=== PATIENT | female | born 1990 | race Caucasian/White ===

== ENCOUNTER → 2016-11-22 | Outpatient (CLI) | payer BC ==
[~2016-11-22] MED LIST: DOCU-94 PO; FERR1TAB13 PO; PRENTAB26 PO
[2016-11-22 12:17] LABS: GTGD 50 Grams
[2016-11-23 15:05] LABS: AFP CONCENTRATION 47.2 NG/ML; AFP MULTIPLE OF MEDIAN 1.24; AFPTS GESTATIONAL AGE 16.4 WEEKS; AFPTS INSULIN DEP DIABETIC? NO; AFPTS MATERNAL WT 129 LBS; ALPHA-FETOPROTEIN RACE CAUCASIAN=W; ESTRIOL MULTIPLE OF MEDIAN 0.89; HISTORY OF NTD NO; INHIBIN A 190 PG/ML; INHIBIN A MOM 1.05; REPEAT SAMPLE? NO; hCG MULTIPLE OF MEDIAN 0.32
== END | disposition home or self-care (01) ==
LOC: C.LAB1850 09:36
PROVIDERS: ATTEND Obstetrics & Gynecology
DX: Z34.02 Encounter for supervision of normal first pregnancy, second trimester (principal)

== ENCOUNTER → 2017-02-08 | Outpatient (CLI) | payer BC ==
[2017-02-08 12:18] LABS: HEMATOCRIT 30.9 % (37-47)
[2017-02-08 12:50] LABS: GTGD 50 Grams
[2017-02-08 14:04] LABS: URINE APPEARANCE CLEAR (CLEAR); URINE BILIRUBIN NEG (NEG); URINE COLOR YELLOW; URINE NITRITE NEG (NEG); URINE PH 7.5 (4.5-7.5); UROBILINOGEN NEG (NEG)
[2017-02-08 14:06] LABS: MANUAL MICROSCOPIC REQUIRED? NO; REVIEW REQ? NO
== END | disposition home or self-care (01) ==
LOC: C.LAB1850 11:08
PROVIDERS: ATTEND Obstetrics & Gynecology
DX: Z34.03 Encounter for supervision of normal first pregnancy, third trimester (principal)

== ENCOUNTER → 2017-04-10 | Outpatient (CLI) | payer BC | END | disposition home or self-care (01) | LOC: C.LABSPEC 14:00 | PROVIDERS: ATTEND Obstetrics & Gynecology | DX: Z34.03 Encounter for supervision of normal first pregnancy, third trimester (principal) ==

== ENCOUNTER → 2017-04-11 | Outpatient (CLI) | payer BC ==
[2017-04-11 11:49] LABS: PATIENT HEIGHT 154.9 cm
[2017-04-11 12:29] LABS: BASO % 0.2 %; BASO ABS # 0.01 K/uL (0-0.2); COMPLETE YES; EOS % 2.5 %; HEMATOCRIT 35.2 % (37-47); IG% 0.9 %; LYMPH % 16.8 %; LYMPH ABS # 1.08 K/uL (1.2-3.4); MEAN CELL VOLUME 91.4 fL (80-100); MEAN CORPUSCULAR HEMOGLOBIN 28.8 pg (25-34); MEAN CORPUSCULAR HGB CONC 31.5 g/dl (32-36); MEAN PLATELET VOLUME 11.2 fL (7.4-10.4); MONO % 8.4 %; NEUT % 71.2 %; PLATELET COUNT 159 K/uL (130-400); RED BLOOD COUNT 3.85 M/uL (4.2-5.4); WHITE BLOOD COUNT 6.41 K/uL (4.8-10.8)
[2017-04-11 12:55] LABS: URINE TOTAL PROTEIN 11.9 mg/dl (0-11.9)
[2017-04-11 12:58] LABS: URINE TOTAL PROTEIN CALC 249.9 mg/24 hr (0-149.1)
[2017-04-11 13:31] LABS: URIC ACID 4.4 mg/dl (2.6-7.2)
[2017-04-11 13:39] LABS: CREATININE 0.58 mg/dl (0.6-1.2)
== END | disposition home or self-care (01) ==
LOC: C.LAB1850 10:51
PROVIDERS: ATTEND Obstetrics & Gynecology
DX: O13.9 Gestational [pregnancy-induced] hypertension without significant proteinuria, unspecified trimester (principal)

== ENCOUNTER 2017-04-20 10:15 | Inpatient (IN) | payer BC ==
[~2017-04-20] VITALS: Ht 154.9 cm; Wt 75.0 kg
[2017-04-20] MEDS ORDERED: LACTATED RINGER'S 1000ML 1,000 ML IV SCH (10:25)
[2017-04-20] MEDS ORDERED: LACTATED RINGER'S 1000ML 1,000 ML IV PRN (10:25)
[2017-04-20] MEDS ORDERED: PATIENT'S ALLERGY INFO NEEDS ENTERED SCH (10:30)
[2017-04-20 10:35] VITALS: Ht 154.9 cm; Wt 75.0 kg
[2017-04-20] MEDS ORDERED: PRENTAB26 PO (10:35)
[2017-04-20] MEDS ORDERED: FERR1TAB13 PO (10:35)
[2017-04-20] MEDS ORDERED: DOCU-94 PO (10:35)
[2017-04-20] MEDS ORDERED: FENTANYL CITRATE INJ 50 MCG/1 ML 2 ML VIAL ONE (10:59)
[2017-04-20] MEDS ORDERED: FENTANYL 2MCG/ML ROPIV 1.25MG/ML 100ML BAG EPI ONE (10:59)
[2017-04-20] MEDS ORDERED: BUPIVACAINE 0.25% 30 ML VIAL ONE (10:59)
[2017-04-20] MEDS ORDERED: EpHEDrine SULFATE INJ 50 MG/ML AMP ONE (10:59)
[2017-04-20] MEDS ORDERED: PENICILLIN G POTASSIUM IV 6 MU in DEXTROSE 5% 250ML 250 ML IV ONE (11:00)
[2017-04-20 11:21] LABS: HEMATOCRIT 36.5 % (37-47); MEAN CELL VOLUME 90.3 fL (80-100); MEAN CORPUSCULAR HEMOGLOBIN 28.7 pg (25-34); MEAN CORPUSCULAR HGB CONC 31.8 g/dl (32-36); MEAN PLATELET VOLUME 10.9 fL (7.4-10.4); PLATELET COUNT 179 K/uL (130-400); RED BLOOD COUNT 4.04 M/uL (4.2-5.4); WHITE BLOOD COUNT 7.39 K/uL (4.8-10.8)
[2017-04-20] MEDS ORDERED: LACTATED RINGER'S 1000ML 500 ML IV PRN (12:06)
[2017-04-20] MEDS ORDERED: NALOXONE HCL INJ 1 MG in SODIUM CHLORIDE 0.9% 1000ML 1,000 ML IV PRN (12:06)
[2017-04-20] MEDS ORDERED: EpHEDrine SULFATE INJ 50 MG/ML AMP IV PRN (12:15)
[2017-04-20] MEDS ORDERED: FENTANYL 2MCG/ML ROPIV 1.25MG/ML 100ML BAG EPI PRN (12:15)
[2017-04-20] MEDS ORDERED: DiphenhydrAMINE HCL 50 MG/ML VIAL IV PRN (12:15)
[2017-04-20] MEDS ORDERED: NALBUPHINE HCL INJ 10 MG/ML AMP IV PRN (12:15)
[2017-04-20] MEDS ORDERED: ONDANSETRON INJ 2 MG/ML 2 ML VIAL IV PRN (12:15)
[2017-04-20] MEDS ORDERED: NALOXONE HCL INJ 0.4 MG/1 ML VIAL/CARP IV PRN (12:15)
--- NOTE | 2017-04-20 12:36 | Medical Student: [facility] ---
Med Student History & Physical Date of Service Apr 20, 2017. Chief Complaint R/O Labor History of Present Illness Source: patient Iza Obregon is a 26-year-old at 37 weeks-5/7 days with an EDC of who presents for labor. Starting at 9AM she began having contractions that were about 3 minutes apart. She is unsure if she has leaked any fluid, but she has not had any bleeding. She is still feeling movement. Upon arrival she was uncomfortable and requested epidural. Epidural is now and place and patient is having some relief. This has been uncomplicated thus far. She did have an elevated blood pressure of 148/84 on 04/10/17. PIH labs and 24 hour urine were not suggestive of preeclampsia. Blood pressure on 04/18/17 was 132/ 80. She denies any visual changes, RUQ pain, nausea, vomiting, or headache today. She does feel short of breath but thinks this may be due to her pain. This has been followed by [facility]. Iza is having a boy and plans to name him "Caesar." Quad screening was not suggestive of any genetic disease. 1 hr glucose challenge on 11/22/16 was 124. Blood type is O+, and Hbg is 11.6 today. labs are negative for RPR, gonorrhea, chlamydia , HIV, and Hep B. GBS positive. Anatomy ultrasound was within normal limits. Urine culture grew lactobacillus. Rubella immune. OB History Current is first and only . 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 Denies history of abnormal pap smears, STIs, or any other gynecologic problem Past Medical History Patient reports anemia in high school and during this . 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[facility]) Allergies Coded Allergies: Clarithromycin (Verified Allergy, Severe, RASH, 04/20/17) Home Medications Docusate Sodium (Colace), 1 CAP PO DAILY Ferrous Sulfate (Kp Ferrous Sulfate), 1 TAB PO DAILY Multivit/Min/Iron/Fol Ac/Pren ( Vitamin), 1 TAB PO DAILY Review of Systems Constitutional: No fever, No chills Eyes: No worsening of vision Respiratory: + shortness of breath Cardiovascular: No chest pain, No palpitations Abdomen: No nausea, No vomiting No dizziness or headache Physical Exam General Appearance: no apparent distress (now comfortable with epidural, very uncomfortable prior to receiving it) Eyes: PERRL, sclerae normal Neck: no adenopathy, thyroid normal Respiratory/Chest: lungs clear Cardiovascular: regular rate, rhythm, no gallop, + systolic murmur (likely of normal ) Abdomen / GI: normal bowel sounds Fundal Height: 1 fingerbreadth below xiphoid process Extremities: no calf tenderness, no pedal edema Cervical Exam: 5 cm dilated, 100% effaced, 0 station Monitoring External Monitor: Baseline - 145 Variability - Moderate Accelerations - Present Decelerations - Early Tocodynamometer: Daly every 1-2 minutes Laboratory Results 04/20/17 11:11 Test 04/20/17 11:11 Red Blood Count 4.04 M/uL (4.2-5.4) Mean Corpuscular Volume 90.3 fL (80-100) Mean Corpuscular Hemoglobin 28.7 pg (25-34) Mean Corpuscular Hemoglobin Concent 31.8 g/dl (32-36) RDW Standard Deviation 50.7 fL (36.4-46.3) RDW Coefficient of Variation 15.2 % (11.5-14.5) Mean Platelet Volume 10.9 fL (7.4-10.4) Assessment and Plan Iza Obregon is a 26-year-old at 37 weeks-5/7 days with an EDC of who presents to labor and delivery for labor. Blood pressure WNL today, but continue to monitor for symptoms of eclampsia and HELLP syndrome. Patient comfortable with epidural and visiting with family. Allow patient to labor down and anticipate normal spontaneous vaginal delivery.
[2017-04-20] MEDS: PENICILLIN G POTASSIUM IV 3 MU in DEXTROSE 5% 100ML 100 ML IV PRN ×2 (14:16→18:33)
[2017-04-20] MEDS ORDERED: OXYTOCIN 30 UNITS/500ML NSS IV ONE (16:21)
[2017-04-20] MEDS ORDERED: OXYCODONE/ACETAMINOPHEN 5-325 TAB PO PRN (20:45)
[2017-04-20] MEDS ORDERED: SUPERCREAM 0.870 % 15GM JAR EXT PRN (20:45)
[2017-04-20] MEDS ORDERED: BENZOCAINE 20% AER SPR 82.5 GM CAN EXT PRN (20:45)
[2017-04-20] MEDS ORDERED: HYDROCORTISONE ACETATE 25 MG SUPP PR PRN (20:45)
[2017-04-20] MEDS ORDERED: OXYTOCIN 30 UNITS/500ML NSS IV PRN (20:45)
[2017-04-20] MEDS ORDERED: LANOLIN OINT EXT PRN ×2 (20:45)
--- NOTE | 2017-04-20 21:38 | Anesthesia Procedure Note ---
Anesthesia Epidural Removal Nt Date & Time Apr 20, 2017 at 21:38 Vital Signs Pain Intensity: 2 Notes Mental Status: alert / awake / arousable, participated in evaluation Nausea / Vomiting: adequately controlled Pain: adequately controlled Airway Patency, RR, SpO2: stable & adequate BP & HR: stable & adequate Hydration State: stable & adequate Neuraxial Anesthesia: was administered Anesthetic Complications: no major complications apparent, pt satisfied with anesthetic care Epidural: removed without complications, with tip intact
[2017-04-20] MEDS: IBUPROFEN 600 MG TAB PO PRN (22:25)
[2017-04-20 23:32] VITALS: BP 124/80; PULSE 93; TEMP 36.8
--- NOTE | 2017-04-21 01:19 | DELIVERY SUMMARY ---
DATE OF OPERATION: 04/20/2017 PRE-DELIVERY DIAGNOSES: 1. 26-year-old G1, P0 at 37 weeks 5 days. 2. Spontaneous labor. 3. Group B strep positive. Post-delivery: same EBL: 300ml Findings: viable male , apgars 6, 8, 9. Weight pending. Description of delivery: The patient progressed to complete. She then began to push and spontaneously vaginally delivered a viable male from the occiput posterior position. The head delivered, nuchal x 1 easily reduced, anterior then posterior shoulder then body. Baby was placed on mother's abdomen. Delayed cord clamp by 1 minute. Placenta delivered spontaneously intact with 3 vessel cord. Pit given. Uterus became firm. Uterus/vagina swept of clots and debris. Cervix, vagina, perineum inspected. 2nd degree laceration, no laceration of anal spincter muscle, however muscle capsule partially - this was reapproximated with [id number] stitch of 3-0 chromic. 2nd degree perineal laceration repaired with 3-0 vicryl. Excellent hemostasis. Patient and baby tolerated well and are recovering in room. Sponge/instrument/ needle count correct x 2. MTDD
[2017-04-21 03:30] VITALS: BP 105/68; PULSE 84; TEMP 36.9
[2017-04-21 07:12] LABS: HEMATOCRIT 33.4 % (37-47)
--- NOTE | 2017-04-21 07:13 | Progress Note ---
Subjective Apr 21, 2017. Subjective conversation w/ patient Ambulation: ambulating normally Passing Gas: Yes Diet Tolerance: Regular Diet Lochia: Moderate Feeding Type: Breast Feeding Pain: controlled Review of Systems Constitutional: No problem reported Respiratory: No problem reported Cardiac: No problem reported Breast: No problem reported Abdomen: No problem reported Female : No problem reported Objective Vital Signs Date Time Temp Pulse Resp B/P (MAP) Pulse Ox O2 Delivery O2 Flow Rate FiO2 04/21/17 03:30 36.9 84 18 105/68 (80) Room Air 04/20/17 23:35 Room Air 04/20/17 23:32 36.8 93 18 124/80 (95) Room Air Physical Exam General Appearance: WELL-APPEARING, NO APPARENT DISTRESS Respiratory/Chest: no respiratory distress Cardiovascular: regular rate, rhythm Abdomen: non tender, soft Fundus: Firm Extremities: normal inspection Laboratory Results Last 24 Hours Test 04/20/17 11:11 04/21/17 06:43 White Blood Count 7.39 K/uL Red Blood Count 4.04 M/uL Hemoglobin 11.6 g/dL 10.5 g/dL Hematocrit 36.5 % 33.4 % Mean Corpuscular Volume 90.3 fL Mean Corpuscular Hemoglobin 28.7 pg Mean Corpuscular Hemoglobin Concent 31.8 g/dl RDW Standard Deviation 50.7 fL RDW Coefficient of Variation 15.2 % Platelet Count 179 K/uL Mean Platelet Volume 10.9 fL Assessment and Plan Post- Day#: 1 Continue Routine Care: PPD#1 doing well. Continue routine care.
[2017-04-21] MEDS: IBUPROFEN 600 MG TAB PO PRN ×4 (07:26→20:14)
[2017-04-21 07:30] VITALS: BP 129/79; PULSE 80; TEMP 36.8; O2SAT 98
[2017-04-21] MEDS: DOCUSATE SODIUM 100 MG CAP PO SCH ×2 (08:03→20:14)
[2017-04-21 11:45] VITALS: BP 116/75; PULSE 93; TEMP 36.7; O2SAT 98
[2017-04-21 15:54] VITALS: BP 127/87; PULSE 96; TEMP 36.9
[2017-04-21 19:30] VITALS: BP 118/78; PULSE 96; TEMP 36.6
[2017-04-21] MEDS ORDERED: BISACODYL 5 MG TABEC PO SCH (20:00)
[2017-04-22] MEDS: IBUPROFEN 600 MG TAB PO PRN ×2 (00:14→08:45)
[2017-04-22 00:30] VITALS: BP 108/70; PULSE 79; TEMP 36.5
--- NOTE | 2017-04-22 07:19 | Progress Note ---
Subjective Apr 22, 2017. Subjective conversation w/ patient, physical exam Ambulation: ambulating normally Voiding: no voiding problems Diet Tolerance: Regular Diet Lochia: Small Feeding Type: Breast Feeding Pain: no pain issues Objective Vital Signs Date Time Temp Pulse Resp B/P (MAP) Pulse Ox O2 Delivery O2 Flow Rate FiO2 04/22/17 00:30 36.5 79 16 108/70 (83) Room Air 04/22/17 00:30 Room Air 04/21/17 19:30 36.6 96 20 118/78 (91) Room Air 04/21/17 15:54 36.9 96 20 127/87 (100) 04/21/17 15:30 Room Air 04/21/17 11:45 36.7 93 18 116/75 (89) 98 Room Air 04/21/17 07:30 36.8 80 20 129/79 (96) 98 Room Air 04/21/17 07:30 98 Room Air Physical Exam General Appearance: WELL-APPEARING, WD/WN, NO APPARENT DISTRESS Respiratory/Chest: lungs clear Cardiovascular: regular rate, rhythm Abdomen: non tender, soft Fundus: Firm, Relation to Umbilicus (2 down) Extremities: non-tender Assessment and Plan Post- Day#: 2 Continue Routine Care: stable, routine care. f/u 6wks pp, instructions reviewed.
--- NOTE | 2017-04-22 07:21 | Discharge Instructions ---
Discharge Instructions Date of Service Apr 22, 2017. Admission Reason for Admission: R/O Labor Discharge Discharge Diagnosis / Problem: after delivery Discharge Goals Goal(s): Routine recovery after delivery Medications Continue Dispensed Medications: other Activity Recommendations Activity Limitations: as noted below . Instructions / Follow-Up Instructions / Follow-Up ACTIVITY RECOMMENDATIONS: * Gradual return to full activity over the next 2-3 weeks. * No lifting - nothing heavier than baby over the next 2-3 weeks. * Do not engage in vigorous exercise, sexual activity or sports until cleared by your physician. * Do not drive or operate any motorized equipment until cleared by your physician. * You may shower/bathe daily. MEDICATIONS: For discomfort or pain, you may use Acetaminophen (Tylenol), Ibuprofen (Advil), or Naproxen (Aleve) following the package directions. For constipation you may use Colace following the package directions. BREAST CARE: If you are not breast feeding: * Wear a supportive bra 24 hours a day for one to two weeks. * Avoid stimulating your breasts and nipples as much as possible during the first few weeks after delivery. * When taking a shower, have the warm water hit your back, not breasts. * When your breasts feel full, apply ice packs. Usually three to four times a day helps ease the discomfort. * Take a mild pain medication (Tylenol / Motrin) when you are uncomfortable. If breast feeding: * Use breast milk to lubricate nipples. Lansinoh cream may be used for sore nipples. You do not need to remove cream prior to breast feeding. If using a different brand of cream, check the label for directions regarding removal of cream prior to nursing. * Wear a supportive bra. * If having problems with breasts or breast feeding, call a vmware consultant or your health care provider. EPISIOTOMY CARE: After delivery, if you have an episiotomy (stitches), the following steps will ease discomfort and aid healing. * For the first 24 hours after delivery, place ice packs next to your episiotomy to help reduce swelling. * After the first 24 hour-period, sitz baths, either portable or in the tub, are suggested. A shower with a shower arm sprayed over the episiotomy may be comforting. * Christina care should be done after each voiding and bowel movement. Squirt warm water from a plastic bottle over the perineum (region of the body between the anus and urinary opening) and pat dry. * Use Dermoplast to ease discomfort. Shake container. Goodwin directly over the episiotomy. Place a Tucks on a clean sanitary pad next to your episiotomy. SPECIAL CARE INSTRUCTIONS: When you are discharged from the hospital, it is important for you to follow the instructions listed below: * During the first week at home, you should be able to care for yourself and your baby. In addition, the usual light household activities are encouraged. * Limit your activities to the way you feel. Do not try to clean the house or move furniture. Be sensible. * If you actively engage in sports and have done so up until the time of your delivery, you may resume these activities as soon as you feel able. This may take up to one month or even longer. Use good judgment. * Continue to take your vitamins for at least six weeks after the of your baby. * Your diet need not be limited unless you were on a special diet before your delivery. Breast-feeding mothers need around 2500 calories per day and at least 64-80 ounces of fluid per day (8 to 10 glasses). * You should eat foods from the four major food groups. Crash diets or fad diets are to be avoided. Eating lean meats, fresh fruits and vegetables, low-fat dairy products, high fiber foods and a regular exercise program, will help you get back to your pre- weight without putting your health at risk. * Constipation is sometimes a problem after delivery. Take a mild laxative as needed. If breast feeding, Milk of Magnesia is acceptable to use. You may use a suppository or Fleets enema if no episiotomy. * A daily shower or tub bath is suggested. Be sure to thoroughly and gently dry the perineum. * A bloody vaginal discharge will usually continue until around four weeks post . A small amount of bleeding may continue for as long as six weeks. Vaginal discharge changes from the bright red bleeding after delivery to pink then brownish and finally yellowish-pink before becoming white and disappearing. * Bleeding may increase with activity. Your first period may come in 4-8 weeks. If you are breast feeding, your period may be delayed even longer. * Streetman (sex) can begin whenever both you and your partner feel comfortable and do not have any form of genital infection. It is recommended that you wait at least six weeks for internal and external healing to occur. If you have questions, please talk to your health care practitioner. A condom should be used to prevent infection and . * Foreplay, gentle intercourse and lubrication is very important the first several times to prevent pain. A water-based lubricant such as K-Y jelly or Astroglide may be used. * If you have RH negative blood and your baby is RH positive, you will receive RHOGAM by injection prior to discharge. The nurse will give you a card to keep with you that has the date and place that you received RHOGAM after delivery. * During your care, you had a Rubella screen done to check for the presence of rubella antibodies in your blood. If your test was negative, you will receive a Rubella vaccine prior to discharge. This vaccine may cause a fever, soreness at the injection site and flu-like symptoms. If these symptoms persist, notify your health care practitioner. is not advised for one month after a Rubella vaccine. * Verbalizes understanding of car seat law as reviewed with patient nursing. * Car Seat hand-out given and reviewed with patient by nursing. * Shaken baby information reviewed with patient by nursing. Call you doctor if: * Heavy bleeding (saturating several pads an hour) or passing clots the size of your fist. * A fever >101 degrees F (38.3 degrees C) on two occasions four hours apart and /or chills. * Unusual pain in the pelvic or vaginal areas. * "Baby Blues" lasting longer than two weeks. If you have any questions or concerns, call your health care practitioner at . FOLLOW UP VISIT: * Please call the office at to schedule a 6 week examination. It is important you keep this appointment. It is important for you to make arrangements for either yearly or twice yearly check-ups thereafter. Current Hospital Diet Patient's current hospital diet: Regular OB Diet Discharge Diet Recommended Diet: Regular Diet Pending Studies Studies pending at discharge: no Medical Emergencies . Who to Call and When: Medical Emergencies: If at any time you feel your situation is an emergency, please call 911 immediately. . Non-Emergent Contact Non-Emergency issues call your: [employer] . . "Provider Documentation" section prepared by Brittney Ledesma. . VTE Core Measure Inpt VTE Proph given/why not?: Treatment not indicated
[2017-04-22 07:35] VITALS: BP 106/67; PULSE 80; TEMP 36.7
[2017-04-22] MEDS: DOCUSATE SODIUM 100 MG CAP PO SCH (08:46)
[2017-04-22 16:00] VITALS: BP 100/67; PULSE 92; TEMP 36.8
[2017-04-22 18:17] VITALS: BP_DIAS 67; PULSE 92; TEMP 36.8
== END 2017-04-22 18:20 | disposition home health service (06) | DRG 775 ==
LOC: C.OPB 10:15 → C.LD 10:15 → C.OPB 10:27 → C.OBG 23:12
PROVIDERS: ADMIT Obstetrics & Gynecology; ATTEND Obstetrics & Gynecology
PROC: 10E0XZZ Delivery of Products of Conception, External Approach (ICD-10-PCS; principal; 2017-04-20)
PROC: 0KQM0ZZ Repair Perineum Muscle, Open Approach (ICD-10-PCS; principal; 2017-04-20)
DX: O70.1 Second degree perineal laceration during delivery (principal); O69.81X0 Labor and delivery complicated by cord around neck, without compression, not applicable or unspecified; Z22.330 Carrier of Group B streptococcus; Z3A.37 37 weeks gestation of pregnancy; Z37.0 Single live birth

== ENCOUNTER → 2017-05-29 | Outpatient (CLI) | payer BC | END | disposition home or self-care (01) | LOC: C.PAPS 17:38 | PROVIDERS: ATTEND Obstetrics & Gynecology | DX: Z39.2 Encounter for routine postpartum follow-up (principal) ==

== ENCOUNTER 2019-09-12 11:37 | Inpatient (IN) ==
[2019-09-12] MEDS ORDERED: OXYTOCIN 30 UNITS/500 ML BAG IV PRN ×3 (17:52→23:12)
[2019-09-12 18:20] LABS: Hematocrit (blood only) 35.5 % (37-47); Hemoglobin 11.7 g/dL (12.0-16.0); Mean Corpuscular Hemoglobin 29.5 pg (25-34); Mean Corpuscular Volume 89.6 fL (80-100); Mean Platelet Volume 10.6 fL (7.4-10.4); Platelet Count 146 K/uL (130-400); RDW Coefficient of Variation 15.2 % (11.5-14.5); RDW Standard Deviation 49.4 fL (36.4-46.3); Red Blood Count 3.96 M/uL (4.2-5.4); White Blood Count 7.75 K/uL (4.8-10.8)
[2019-09-12] MEDS: LACTATED RINGER'S 1,000 ML IV PRN ×2 (18:53→21:51)
--- NOTE | 2019-09-12 19:01 | History & Physical Report ---
Date of Service September 12, 2019 Assessment & Plan (1) Supervision of normal intrauterine in multigravida: 29yo at 40.0 weeks GA. Presents for elective IOL. 1. Fetus: Cat 1 2. Labor: Will AROM and then start oxytocin. 3. Vitals: WNL 4. GBS negative History of Present Illness Primary Care Provider: RODRIGO PCP 29yo at 40.0 weeks GA. Present for elective IOL. has been uncomplicated to date. GBS negative. Allergies Allergy/AdvReac Type Severity Reaction Status Date / Time clarithromycin Allergy Severe RASH Verified 09/12/19 18:32 Home Medications Home Medications Medication Instructions Recorded Confirmed Type prenat.vits,lindsey,[id number]-[id number]-[id number] 1 tab PO DAILY 06/07/19 09/12/19 History docusate sodium [Colace] 100 mg PO BID 09/12/19 09/12/19 History ferrous sulfate [iron] 325 mg PO DAILY 09/12/19 09/12/19 History Patient History Family History (Updated 06/07/19 @ 09:21 by Marilynn García) Other Dyslipidemia Hypertension Social History (Updated 06/07/19 @ 09:21 by Marilynn García) Preferred Language: Kinyarwanda Communication Ability: Effective Psychologist Experimental Required: No Beliefs That Will Affect Care: None marital status: Current Living Situation: Family Other Information That Helps Us Care for You: No Feels Safe at Home: Yes Safety Concerns: Feels Safe At This Time Smoking Status: Never smoker Hx Alcohol Use: No Hx Substance Use: No Physical Exam Constitutional: WD/WN, vitals as above Psychiatric: A+Ox3, euthymic affect Genitourinary: no vaginal lesions, no adnexal mass Manual OB Exam: + cervical dilation 2 cm, + cervical effacement 70% and + station -2 OB Exam Monitor Tracing: + external FHT monitor used, + external uterine monitor used, + category I and + normal FHT variability; no early decelerations present, no late decelerations present and no variable decelerations Results & Data Vital Signs (Past 12 Hours) Vital Signs Temp Pulse Resp BP 09/12/19 18:07 37.4 C 83 16 114/78
[2019-09-12] MEDS ORDERED: fentaNYL 2MCG/ML ROPIV 1.25MG/ML 100 ML BAG EPI ONE (20:21)
[2019-09-12] MEDS ORDERED: BUPIVACAINE 0.25% 30 ML VIAL ONE (20:21)
[2019-09-12] MEDS ORDERED: ePHEDrine sulfate 50 MG/ML AMP ONE (20:21)
[2019-09-12] MEDS ORDERED: fentaNYL citrate 100 MCG/2 ML VIAL ONE (20:21)
--- NOTE | 2019-09-12 21:02 | Anesthesiology Consultation ---
Date of Service September 12, 2019 Assessment & Plan Chart Review Chart Review: Acceptable Risk for Labor Epidural Consults Requested none History Height/Weight Height: 5 ft 1 in Weight: 71.668 kg Allergies Allergy/AdvReac Type Severity Reaction Status Date / Time clarithromycin Allergy Severe RASH Verified 09/12/19 18:32 Medications Home Medications Medication Instructions Recorded Confirmed Last Taken prenat.vits,lindsey,wui-ifpw-oiaka 1 tab PO DAILY 06/07/19 09/12/19 09/12/19 08:00 docusate sodium [Colace] 100 mg PO BID 09/12/19 09/12/19 09/12/19 08:00 ferrous sulfate [iron] 325 mg PO DAILY 09/12/19 09/12/19 09/12/19 08:00 Active Medications Generic Name Dose Route Start Last Admin Trade Name Freq PRN Reason Stop Dose Admin Lactated Ringer's 1,000 mls @ 125 mls/hr 09/12/19 17:52 09/12/19 20:20 Lr IV 09/14/19 17:51 999 mls/hr .Q8H PRN Infusion L&D Protocol Protocol Oxytocin 30 units in 500 mls @ 2 mls/hr 09/12/19 17:52 09/12/19 18:54 Pitocin IV 09/14/19 17:51 0.12 units/hr .Q24H PRN 2 mls/hr Labor Induction/Augmentation Administration Protocol 0.12 UNITS/HR Past Medical History Medical History History of varicella Past Family History Family History Other Dyslipidemia Hypertension Past Surgical History Surgical History History of wisdom tooth extraction Social History Smoking Status: Never smoker Hx Alcohol Use: No Hx Substance Use: No substance use type: does not use Physical Exam Vital Signs Last Vital Signs Temp 37.0 C 09/12/19 20:50 Pulse 79 09/12/19 21:00 Resp 16 09/12/19 20:50 BP 109/64 09/12/19 21:00 Pulse Ox 100 09/12/19 20:59 Testing Laboratory Results 09/12/19 18:10
[2019-09-12] MEDS ORDERED: ePHEDrine sulfate 50 MG/ML AMP IV PRN (21:04)
[2019-09-12] MEDS ORDERED: NALOXONE HCL 0.4 MG/1 ML VIAL/CARP IV PRN (21:04)
[2019-09-12] MEDS ORDERED: DiphenhydrAMINE HCL 50 MG/ML VIAL IV PRN (21:04)
[2019-09-12] MEDS ORDERED: fentaNYL 2MCG/ML ROPIV 1.25MG/ML 100 ML BAG EPI PRN (21:04)
[2019-09-12] MEDS ORDERED: NALBUPHINE HCL INJ 10 MG/ML AMP IV PRN (21:04)
[2019-09-12] MEDS ORDERED: NALOXONE HCL 1 MG in SODIUM CHLORIDE 0.9% 1000ML 1,000 ML IV PRN (21:04)
[2019-09-12] MEDS ORDERED: DIPHTHERIA/TETANUS/PERTUSSIS 0.5 ML SYR/VIAL IM ONE (23:12)
[2019-09-12] MEDS ORDERED: BENZOCAINE 20% AER SPR 82.5 GM CAN EXT PRN (23:12)
[2019-09-12] MEDS ORDERED: SUPERCREAM 0.870% 15 GM JAR EXT PRN (23:12)
[2019-09-12] MEDS ORDERED: BISACODYL 10 MG SUPP PR PRN (23:12)
[2019-09-12] MEDS ORDERED: ACETAMINOPHEN 325 MG TAB PO PRN (23:12)
[2019-09-12] MEDS ORDERED: HYDROCORTISONE ACETATE 25 MG SUPP PR PRN (23:12)
--- NOTE | 2019-09-13 02:53 | Anesthesia Procedure Note ---
Date of Service September 13, 2019 Anesthesia Post Epidural Note Vital Signs Vital Signs: Temp Pulse Resp BP Pulse Ox 37.0 C 85 16 108/62 100 09/12/19 23:20 09/13/19 01:05 09/13/19 00:35 09/13/19 01:05 09/12/19 22:44 Pain Intensity Bilateral Abdomen: Pain Intensity: 10 Notes Mental Status: alert / awake / arousable Nausea / Vomiting: adequately controlled Pain: adequately controlled Airway Patency, RR, SpO2: stable & adequate BP & HR: stable & adequate Hydration State: stable & adequate Neuraxial Anesthesia: was administered and sensory block is resolving Anesthetic Complications: no major complications apparent and Pt Satisfied with anesthetic care Epidural: Removed without complications and With tip intact
--- NOTE | 2019-09-13 03:37 | Delivery Summary ---
DATE OF OPERATION: 09/12/2019 PROCEDURE: Normal spontaneous vaginal delivery, second degree perineal laceration repair. SURGEON: Alexis Laguna MD PREOPERATIVE DIAGNOSES: 1. Single intrauterine at 40 weeks' gestational age. 2. Elective induction of labor. POSTOPERATIVE DIAGNOSES: 1. Single intrauterine at 40 weeks' gestational age. 2. Elective induction of labor. 3. Status post delivery. ESTIMATED BLOOD LOSS: 200 mL. DRAINS: None. FLUIDS: Continuous lactated ringer. URINE OUTPUT: Not measured. COMPLICATIONS: None. FINDINGS: Viable with weight pending and Apgars of 8 and 9 at 1 and 5 minutes respectively. INDICATIONS: Iza is a 29-year-old G2, P1-0-0-1, admitted at 40 weeks 0 days gestational age for elective induction of labor. At initial evaluation, the patient was 3 cm dilated, 80% effaced, -2 station. She underwent artificial rupture of membranes, started on oxytocin per regular protocol. She progressed in labor to complete-complete +2 station within about 4 hours and pushed for about 4-5 contractions to achieve delivery. DESCRIPTION OF PROCEDURE: The patient progressed to 10 cm dilated, 100% effaced, +2 station, pushed over intact perineum with epidural anesthesia and delivered a viable male with weight and Apgars as noted above. Head of the delivered in SALLY position, restituted to right transverse. A single loose nuchal was noted which was easily reduced. Body and shoulders quickly followed. was noted to be vigorous almost immediately upon delivery and a 1-minute delayed cord clamping was initiated. The cord was then double clamped and cut and cord blood was obtained. Attention was then turned to deliver the placenta, which was delivered intact, 3-vessel cord with gentle cord traction. On inspection of the perineum, vagina, and cervix, there was noted to be second degree perineal laceration which was repaired with 3-0 Vicryl in a crown stitch. Needle, sponge and instrument counts were correct at the completion of the case with mother and stable in the immediate post-delivery. I attest to the content of the Intraoperative Record and any orders documented therein. Any exception s are noted below.
[2019-09-13] MEDS: IBUPROFEN 600 MG TAB PO PRN ×4 (03:58→19:47)
[2019-09-13 06:41] LABS: Hematocrit (blood only) 32.9 % (37-47); Hemoglobin 10.5 g/dL (12.0-16.0)
--- NOTE | 2019-09-13 06:46 | Obstetrical Progress Note ---
Date of Service <Joseph England DO - Last Filed: 09/13/19 06:46> September 13, 2019 Assessment & Plan <DO Andrea Espinoza Last Filed: 09/13/19 06:46> (1) : -PPD#1 -Vitals reviewed, WNL (Tmax 37.0) - GBS -, Blood Type O+ - Clinically stable. - Feels well today. Eating well, voiding well, ambulating well. - Pain well controlled. - Routine post- care - After discharge will have [address] Laguna Day #:: 1 Subjective <DO Andrea Espinoza Last Filed: 09/13/19 06:46> Ambulation: ambulating normally Voiding: no voiding problems Passing Gas:: Yes Diet Tolerance:: regular diet Lochia:: Moderate Feeding Type:: breast feeding Current Pain Level(1-10): 3 (improves with analgesics) Patient is a 29 PPD#1. Patient states that she is feeling well today and that her pain is well controlled. She has no other complaints at this time. Constitutional: no fever and no chills Respiratory: no cough, no dyspnea and no wheezing Cardiovascular: no chest pain, no dyspnea, no palpitations, no edema and no calf pain Breast: no breast pain Gastrointestinal: no abdominal pain, no nausea and no vomiting Genitourinary (female): no dysuria and no difficulty urinating Neurologic: no headache(s) Physical Exam <DO Andrea Espinoza Last Filed: 09/13/19 06:46> Constitutional WD/WN, vitals as above Respiratory normal respiratory effort, lungs clear to auscultation Cardiovascular Rate/Rhythm: regular rate and regular rhythm Heart Sounds: normal S1 and normal S2; no click, no gallop, no murmur and no cardiac rub Extremities: + edema (+1); no calf tenderness Gastrointestinal (Abdomen) Inspection/Auscultation: abdomen normal to inspection and normal bowel sounds Percussion/Palpation: abdomen soft; abdomen nontender Genitourinary OB Exam Abdomen: + fundal height Fundus: + firm and + relation to umbilicus (1cm below); not tender and not boggy Results & Data <DO Andrea Espinoza Last Filed: 09/13/19 06:46> Vital Signs (Past 12 Hours) Vital Signs Temp Pulse Pulse Resp BP BP Pulse Ox 09/13/19 02:00 36.8 C 76 18 114/72 09/13/19 01:05 85 108/62 09/13/19 00:35 82 16 109/63 09/13/19 00:05 102 H 18 109/67 09/12/19 23:50 76 111/61 09/12/19 23:36 83 115/74 09/12/19 23:20 37.0 C 81 18 106/56 L 09/12/19 23:05 92 H 117/59 L 09/12/19 22:50 88 116/60 09/12/19 22:44 86 100 09/12/19 22:39 120 H 100 09/12/19 22:34 120 H 100 09/12/19 22:33 122 H 92 09/12/19 22:29 108 H 100 09/12/19 22:24 109 H 100 09/12/19 22:22 82 125/78 09/12/19 22:19 91 H 100 09/12/19 22:14 85 100 09/12/19 22:09 86 100 09/12/19 22:05 90 125/67 09/12/19 22:04 95 H 100 09/12/19 21:59 101 H 100 09/12/19 21:54 90 100 09/12/19 21:51 94 H 122/72 09/12/19 21:49 100 H 100 09/12/19 21:44 93 H 99 09/12/19 21:39 87 99 09/12/19 21:37 78 113/61 09/12/19 21:34 87 100 09/12/19 21:29 84 99 09/12/19 21:24 80 99 09/12/19 21:19 86 99 09/12/19 21:17 69 107/59 L 09/12/19 21:16 76 103/55 L 09/12/19 21:14 89 100 09/12/19 21:11 88 111/68 09/12/19 21:09 89 99 09/12/19 21:08 90 111/64 09/12/19 21:04 91 H 99 09/12/19 21:00 79 109/64 09/12/19 20:59 83 100 09/12/19 20:58 75 106/64 09/12/19 20:56 74 105/56 L 09/12/19 20:54 84 100 09/12/19 20:50 37.0 C 90 16 121/66 09/12/19 20:49 87 99 09/12/19 20:48 90 125/60 09/12/19 20:44 87 100 09/12/19 20:39 102 H 100 09/12/19 20:34 99 H 99 09/12/19 20:05 81 113/71 <Alexis Laguna MD - Last Filed: 09/13/19 08:03> Co-Signing Physician Notes Patient seen and evaluated and agree with the above findings and plan. Routine care. Resident Activity Tracking <Joseph England DO - Last Filed: 09/13/19 06:46> Resident Involvement: Resident Care Provided Care Provided: OB Delivery
[2019-09-13] MEDS: PRENATAL VITAMIN 1 TAB PO SCH (08:11)
[2019-09-13] MEDS: DOCUSATE SODIUM 100 MG CAP PO SCH ×2 (08:11→19:47)
[2019-09-13] MEDS ORDERED: BISACODYL 5 MG TABEC PO SCH (20:00)
--- NOTE | 2019-09-14 06:42 | Obstetrical Progress Note ---
Date of Service <Joseph England DO - Last Filed: 09/14/19 06:42> September 14, 2019 Assessment & Plan <DO Andrea Espinoza Last Filed: 09/14/19 06:42> (1) : -PPD#2 -Vitals reviewed, WNL (Tmax 36.8) - GBS -, Blood Type O+ - Clinically stable. - Feels well today. Eating well, voiding well, ambulating well. - Pain well controlled. - Routine post- care - After discharge will have [address] Laguna Day #:: 2 Subjective <Joseph England DO - Last Filed: 09/14/19 06:42> Ambulation: ambulating normally Voiding: no voiding problems Passing Gas:: Yes Diet Tolerance:: regular diet Lochia:: Small Feeding Type:: breast feeding (plus bottle supplementation) Current Pain Level(1-10): 1 (improves with analgesics) Patient is a 29 PPD#2. Patient states that she is feeling well today and that her pain is well controlled. She has no other complaints at this time. Constitutional: no fever and no chills Respiratory: no cough, no dyspnea and no wheezing Cardiovascular: no chest pain, no dyspnea, no palpitations, no edema and no calf pain Breast: no breast pain Gastrointestinal: no abdominal pain, no nausea and no vomiting Genitourinary (female): no dysuria and no difficulty urinating Neurologic: no headache(s) Physical Exam <DO Andrea Espinoza Last Filed: 09/14/19 06:42> Constitutional WD/WN, vitals as above Respiratory normal respiratory effort, lungs clear to auscultation Cardiovascular Rate/Rhythm: regular rate and regular rhythm Heart Sounds: normal S1 and normal S2; no click, no gallop, no murmur and no cardiac rub Extremities: no calf tenderness and no edema Gastrointestinal (Abdomen) Inspection/Auscultation: abdomen normal to inspection and normal bowel sounds Percussion/Palpation: abdomen soft; abdomen nontender Genitourinary OB Exam Abdomen: + fundal height Fundus: + firm and + relation to umbilicus (2cm below); not tender and not boggy Results & Data <Joseph JohnsonnDO Mendez Last Filed: 09/14/19 06:42> Vital Signs (Past 12 Hours) Vital Signs Temp Pulse Resp BP 09/13/19 23:00 36.6 C 66 18 112/72 09/13/19 19:55 36.8 C 68 18 112/75 <Amanda Farah MD, FACOG - Last Filed: 09/14/19 07:50> Co-Signing Physician Notes Resident Physician Supervision Note: I was present with Dr. England during the history and exam. I discussed the case with the resident and agree with the findings and plan as documented in the note. Any exceptions or clarifications are listed here: [None] Documented By: Amanda Farah MD, FACOG Resident Activity Tracking <Joseph England DO - Last Filed: 09/14/19 06:42> Resident Involvement: Resident Care Provided Care Provided: OB Delivery
[2019-09-14] MEDS: PRENATAL VITAMIN 1 TAB PO SCH (08:08)
[2019-09-14] MEDS: DOCUSATE SODIUM 100 MG CAP PO SCH ×2 (08:08→21:15)
[2019-09-14] MEDS: IBUPROFEN 600 MG TAB PO PRN ×2 (08:10→17:44)
== END 2019-09-14 21:05 | disposition home or self-care (01) | DRG 807 ==
LOC: 4S1 17:47 → 4S2 09-13 01:35